=== PATIENT | female | born 1970 | race Native Hawaiian/Other Pacific Islander ===

== ENCOUNTER 2017-10-15 11:22 | Inpatient (IN) | payer OTHER ==
[2017-10-15 11:23] VITALS: BMI 23.6
[2017-10-15 12:02] LABS: BASO # 0.1 K/uL (0.0-0.2); EOS # 0.3 K/uL (0.0-0.7); EOS % 3.5 % (0.0-4.0); HEMATOCRIT 45.8 % (34.0-47.0); LYMPH # 3.1 K/uL (1.0-4.3); MEAN CELL VOLUME 92.9 fL (81.0-99.0); MEAN CORPUSCULAR HEMOGLOBIN 31.2 pg (27.0-31.0); MEAN CORPUSCULAR HGB CONC 33.6 g/dL (33.0-37.0); MEAN PLATELET VOLUME 6.6 fL (7.2-11.7); MONO # 0.6 K/uL (0.0-0.8); MONO % 7.3 % (0.0-10.0); RED CELL DISTRIBUTION WIDTH 13.3 % (11.5-14.5); WHITE BLOOD COUNT 8.1 K/uL (4.8-10.8)
--- NOTE | 2017-10-15 12:02 | C.PDOC ---
History Of Present Illness 47 y/o female presents to ED status post intentional overdose of Benadryl prior to arrival. Patient states she took 15 pills in 1hour for new onset bilateral itchy eyes since this morning. Patient reports unknown other coingestion and denies suicidal ideation, sob, wheeze or any other complaints at this time. HPI limited secondary to patient's clinical condition. 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 PS TOOK 15 PILLS IN 1 HOUR FOR NEW ONSET B/L ITCHY EYES SINCE THIS MORNING. UNK OTHER COINGESTION. DENIES SI. NO SOB, WHEEZE. ROS LIMITED DUE TO CLIN COND EXAM MOD DIST NONTOXIC HEENT B/L PERIORB HIVES W WATERY EYE DC; NO ANGIOEDEMA; NO DROOL, STRIDOR RHINORRHEA LUNGS CTA B/L NO W/R/R CV RRR SINUS TACH ABD NEG SKIN NO HIVES PSYCH MILD AGITATION BUT CONSOLABLE MILD CONFUSION LABILE NEURO NO GROSS FOCAL DE REMAINDER NEG Time Seen by Provider: 10/15/17 11:46 Chief Complaint (Nursing): Medical Clearance History Per: Patient History/Exam Limitations: clinical condition Onset/Duration Of Symptoms: Hrs Current Symptoms Are (Timing): Still Present Suicide/Self Injury Attempted (Context): None Past Medical History Reviewed: Historical Data, Nursing Documentation, Vital Signs Vital Signs: Last Vital Signs Temp 98.3 F 10/15/17 16:14 Pulse 113 H 10/15/17 16:14 Resp 16 10/15/17 16:14 BP 134/83 10/15/17 16:14 Pulse Ox 99 10/15/17 16:14 - Medical History PMH: Fractures (RT. ANKLE) Surgical History: No Surg Hx - [facility] OP RED-INT FIX TIB/FIBUL (07/25/14) Family History: States: No Known Family Hx - Social History Hx Alcohol Use: No Hx Substance Use: No - Immunization History Hx Tetanus Toxoid Vaccination: No Hx Influenza Vaccination: No Hx Pneumococcal Vaccination: No Review Of Systems Review Of Systems: ROS cannot be obtained secondary to pt's inabilty to answer questions. Physical Exam - Physical Exam Appears: Non-toxic, Other (Moderate distress) Skin: Warm, Dry, No Rash Head: Atraumatic, Normacephalic, Other (+Periorbital hives bilateral w/ watery eye discharge) Eye(s): bilateral: Other ((-)angioedema ) Ear(s): Bilateral: Normal Oral Mucosa: Moist Throat: Normal, No Erythema, No Exudate, No Drooling Neck: Supple Cardiovascular: Rhythm Regular, Other (Tachycardic) Respiratory: Normal Breath Sounds, No Rales, No Rhonchi, No Wheezing Gastrointestinal/Abdominal: Soft, No Tenderness, No Guarding, No Rebound Neurological/Psych: Oriented x3, Other ((+)Mild agitation, Consolable, mild confusion labile (-)gross focal deficits) ED Course And Treatment - Laboratory Results Result Diagrams: 10/15/17 11:57 10/15/17 11:57 ECG: Interpreted By Me ECG Rhythm: Sinus Tachycardia ECG Interpretation: Abnormal Interpretation Of ECG: QRS 92 QTC 455 Rate From EC (BPM) O2 Sat by Pulse Oximetry: 100 (RA) Pulse Ox Interpretation: Normal Progress - Re-Evaluation Re-evaluation Note: 10/15/17 11:47 PER RN OUTLAW D/W [place] POISONS: URINARY RETENTION, AGITATION, SOMNALENCE 10/15/17 14:40 SLEEPING NAD VSS 10/15/17 15:55 INCR AGITATION. 10/15/17 15:21 REPEAT EKG NSR @ 106 10/15/17 17:12 PERSIST SX, HALLUCINATIONS. 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 case with internal consultant/specialty: Other ([place] POISONS) Disposition Counseled Patient/Family Regarding: Studies Performed, Diagnosis - Disposition Disposition: HOSPITALIZED Disposition Time: 17:12 Condition: STABLE Forms: [facility] ([employer]) - POA Present On Arrival: None - Clinical Impression Clinical Impression: Antihistamines overdose - Scribe Statement The provider has reviewed the documentation as recorded by the Pabloibsimone Slater All medical record entries made by the Scribe were at my direction and personally dictated by me. I have reviewed the chart and agree that the record accurately reflects my personal performance of the history, physical exam, medical decision making, and the department course for this patient. I have also personally directed, reviewed, and agree with the discharge instructions and disposition. Decision To Admit - Pt Status Changed To: Hospital Disposition Of: Observation - . Bed Request Type: Telemetry Admitting Physician: Angelica Sen Patient Diagnosis: Antihistamines overdose
[2017-10-15 12:13] LABS: ALB/GLOB RATIO 1.6 (1.0-2.1); ALCOHOL SERUM < 10 mg/dl (0-10); ALKALINE PHOSPHATASE 55 U/L (38-126); ALT/SGPT 27 U/L (9-52); AST/SGOT 27 U/L (14-36); BILIRUBIN,TOTAL 0.8 mg/dL (0.2-1.3); BLOOD UREA NITROGEN 7 mg/dL (7-17); CARBON DIOXIDE 28 mmol/L (22-30); CHLORIDE 100 mmol/L (98-107); GFR AFRICAN-AMERICAN > 60; GLUCOSE,RANDOM 88 mg/dL (65-105); POTASSIUM 3.5 mmol/L (3.6-5.2); SODIUM 138 mmol/L (132-148); TOTAL PROTEIN 8.1 g/dL (6.3-8.3)
[2017-10-15] MEDS ORDERED: MethylPREDNISolone 40 mg Vial IVP STA (12:19)
[2017-10-15] MEDS ORDERED: MethylPREDNISolone 40 mg Vial ONE (12:34)
--- NOTE | 2017-10-15 13:30 | RAD ---
PROCEDURE: CHEST RADIOGRAPH, 1 VIEW HISTORY: Overdosed COMPARISON: Comparison chest dated 07/25/2014. FINDINGS: LUNGS: Poor inspiration with low lung volumes, crowded bronchovascular markings and mild bibasilar atelectasis. PLEURA: No pneumothorax or pleural fluid seen. CARDIOVASCULAR: Normal. OSSEOUS STRUCTURES: No significant abnormalities. VISUALIZED UPPER ABDOMEN: Normal. OTHER FINDINGS: None. IMPRESSION: Poor inspiration with low lung volumes, crowded bronchovascular markings and mild bibasilar atelectasis. The
[2017-10-15 14:55] LABS: RBC URINE 2 /hpf (0-3); URINE BILIRUBIN NEGATIVE (NEGATIVE); URINE BLOOD NEGATIVE (NEGATIVE); URINE COLOR Straw (YELLOW); URINE GLUCOSE (UA) NORMAL (Normal); URINE KETONE NEGATIVE (NEGATIVE); URINE LEUKOCYTE ESTERASE 1+ Leu/uL (Negative); URINE PROTEIN NEGATIVE (NEGATIVE); URINE UROBILINOGEN NORMAL mg/dL (0.2-1.0); WBC URINE 2 /hpf (0-5)
[2017-10-16] MEDS: Dextrose 5%/0.45% NS 1,000 ML IV SCH ×3 (02:00→19:41)
[2017-10-16 08:17] LABS: BASO % 0.2 % (0.0-2.0); EOS % 0.2 % (0.0-4.0); HEMATOCRIT 42.3 % (34.0-47.0); LYMPH # 2.1 K/uL (1.0-4.3); LYMPH % 17.4 % (20.0-40.0); MEAN CELL VOLUME 93.3 fL (81.0-99.0); MEAN CORPUSCULAR HEMOGLOBIN 31.1 pg (27.0-31.0); MEAN CORPUSCULAR HGB CONC 33.3 g/dL (33.0-37.0); MEAN PLATELET VOLUME 6.7 fL (7.2-11.7); MONO # 0.9 K/uL (0.0-0.8); MONO % 7.2 % (0.0-10.0); NRBC % 0.1 % (0.0-2.0); RED CELL DISTRIBUTION WIDTH 13.3 % (11.5-14.5)
[2017-10-16 08:25] LABS: WHITE BLOOD COUNT 12.3 K/uL (4.8-10.8)
[2017-10-16 08:46] LABS: ALB/GLOB RATIO 1.6 (1.0-2.1); ALKALINE PHOSPHATASE 54 U/L (38-126); ALT/SGPT 20 U/L (9-52); AST/SGOT 25 U/L (14-36); BLOOD UREA NITROGEN 8 mg/dL (7-17); CALCIUM 8.5 mg/dl (8.6-10.4); CARBON DIOXIDE 23 mmol/L (22-30); CHLORIDE 103 mmol/L (98-107); GFR AFRICAN-AMERICAN > 60; GLUCOSE,RANDOM 97 mg/dL (65-105); POTASSIUM 3.3 mmol/L (3.6-5.2); SODIUM 137 mmol/L (132-148); TOTAL PROTEIN 6.8 g/dL (6.3-8.3)
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
--- NOTE | 2017-10-16 14:49 | CT ---
PROCEDURE: CT HEAD WITHOUT CONTRAST. HISTORY: Head Injury COMPARISON: None available. TECHNIQUE: Axial computed tomography images were obtained through the head/brain without intravenous contrast. Radiation dose: Total exam DLP = 984.01 mGy-cm. This CT exam was performed using one or more of the following dose reduction techniques: Automated exposure control, adjustment of the mA and/or kV according to patient size, and/or use of iterative reconstruction technique. FINDINGS: HEMORRHAGE: No acute parenchymal, subarachnoid or extra-axial hemorrhage. BRAIN: No mass effect or edema. No atrophy or chronic microvascular ischemic changes. VENTRICLES: No obstructive hydrocephalus. CALVARIUM: No acute calvarial fractures. PARANASAL SINUSES: Minor mucosal thickening seen within a few ethmoid air cells as well as sphenoid sinus. MASTOID AIR CELLS: Unremarkable as visualized. No inflammatory changes. OTHER FINDINGS: None. IMPRESSION: No acute intracranial hemorrhage.
[2017-10-17] MEDS: Dextrose 5%/0.45% NS 1,000 ML IV SCH ×2 (05:29→16:55)
[2017-10-17 12:11] LABS: BASO # 0.1 K/uL (0.0-0.2); BASO % 1.1 % (0.0-2.0); EOS # 0.3 K/uL (0.0-0.7); EOS % 3.6 % (0.0-4.0); HEMATOCRIT 39.9 % (34.0-47.0); LYMPH # 3.3 K/uL (1.0-4.3); LYMPH % 38.3 % (20.0-40.0); MEAN CELL VOLUME 92.2 fL (81.0-99.0); MEAN CORPUSCULAR HEMOGLOBIN 31.4 pg (27.0-31.0); MEAN CORPUSCULAR HGB CONC 34.1 g/dL (33.0-37.0); MEAN PLATELET VOLUME 6.8 fL (7.2-11.7); MONO # 0.6 K/uL (0.0-0.8); MONO % 7.6 % (0.0-10.0); NRBC % 0.1 % (0.0-2.0); RED CELL DISTRIBUTION WIDTH 13.3 % (11.5-14.5); WHITE BLOOD COUNT 8.5 K/uL (4.8-10.8)
--- NOTE | 2017-10-17 13:05 | PCM.PYCHPN ---
Psychiatric Progress Note - Psychiatric Progress Note Patient seen today, length of contact: 15 min Patient Chief Complaint: I was feeling depressed.' Problems Identified/Issues Discussed: Patient seen and evaluated, chart reviewed and discussed with the nurse. Patient remained isolated, confined and withdrawn. Patient still reports depressed mood and feelings of hopelessness and worthlessness. Staff reports that she has been crying and remained depressed and withdrawn. She has poor appetite and she remained on her bed whole day. However, she is taking medication and denies any side effects. She needs more time for stabilization. Supportive therapy and psychoeducation were given. Medication Change: Yes (increase zoloft) Medical Record Reviewed: Yes Mental Status Examination - Cognitive Function Orientation: Person, Place, Situation, Time Memory: Intact Attention: WNL Concentration: Poor Association: WNL Fund of Knowledge: Poor - Mood Mood: Depressed, Anxious - Affect Affect: Constricted, Depressed - Speech Speech: Soft - Formal Thought Process Formal Thought Process: No Impairment - Suicidal Ideation Suicidal Ideation: No - Homicidal Ideation Homicidal Ideation: No Goal/Treatment Plan - Goal/Treatment Plan Need for Continued Stay: Severe depression anxiety, Severe functional impairment Progress Toward Problem(s) and Goals/Treatment Plan: Major depressive disorder single episode severe without psychotic feature CBT Psychoeducation Supportive therapy, group therapy, individual therapy Ativan 1 mg every 6 hours prn Zoloft 100 mg by mouth daily Neurontin 100 mg by mouth 3 times a day Trazodone 50 mg by mouth daily at bedtime - Smoking Cessation Smoking Cessation Initiated: No
[2017-10-17 13:14] LABS: ALB/GLOB RATIO 1.6 (1.0-2.1); ALKALINE PHOSPHATASE 49 U/L (38-126); ALT/SGPT 26 U/L (9-52); AST/SGOT 24 U/L (14-36); BILIRUBIN,TOTAL 0.5 mg/dL (0.2-1.3); BLOOD UREA NITROGEN 16 mg/dL (7-17); CARBON DIOXIDE 26 mmol/L (22-30); CHLORIDE 102 mmol/L (98-107); GFR AFRICAN-AMERICAN > 60; GLUCOSE,RANDOM 108 mg/dL (65-105); POTASSIUM 3.4 mmol/L (3.6-5.2); SODIUM 139 mmol/L (132-148); TOTAL PROTEIN 6.2 g/dL (6.3-8.3)
[2017-10-17] MEDS ORDERED: Potassium Chloride 20 mEq ER Tab PO ONE (13:34)
--- NOTE | 2017-10-17 14:36 | CP.PCM.PN ---
Subjective - Date & Time of Evaluation Date of Evaluation: 10/17/17 Time of Evaluation: 10:00 - Subjective Subjective: PGY3 on medicine Dr. Sen service: Pt seen and examined at bedside this morning. Pt reports feeling better emotionally and physically. Pt was able to tolerate diet and carry out normal conversation. No other acute events overnight. Pt to be transferred to . Objective - Vital Signs/Intake and Output Vital Signs (last 24 hours): Temp Pulse Resp BP Pulse Ox 97.9 F 75 20 100/61 98 10/17/17 08:52 10/17/17 08:52 10/17/17 08:52 10/17/17 09:08 10/17/17 08:52 Intake and Output: 10/17/17 10/17/17 06:59 18:59 Intake Total 600 Balance 600 - Medications Medications: Current Medications Gabapentin (Neurontin) 100 mg PO TID [facility] Last Admin: 10/17/17 10:06 Dose: 100 mg Dextrose/Sodium Chloride (Dextrose 5%/0.45% Ns 1000 Ml) 1,000 mls @ 100 mls/hr IV .Q10H [facility] Last Admin: 10/17/17 05:29 Dose: Not Given Lorazepam (Ativan) 1 mg IVP Q6H PRN PRN Reason: Anxiety Lorazepam (Ativan) 1 mg PO Q6 PRN PRN Reason: Agitation Sertraline HCl (Zoloft) 50 mg PO DAILY [facility] Last Admin: 10/17/17 10:06 Dose: 50 mg Trazodone HCl (Desyrel) 50 mg PO HS [facility] Last Admin: 10/16/17 21:36 Dose: 50 mg - Labs Labs: 10/17/17 11:48 10/17/17 11:48 - Constitutional Appears: Non-toxic, No Acute Distress - Head Exam Head Exam: NORMOCEPHALIC - Eye Exam Eye Exam: Normal appearance Pupil Exam: NORMAL ACCOMODATION - ENT Exam ENT Exam: Mucous Membranes Moist - Respiratory Exam Respiratory Exam: Clear to Ausculation Bilateral, NORMAL BREATHING PATTERN. absent: Wheezes - Cardiovascular Exam Cardiovascular Exam: REGULAR RHYTHM, +S1, +S2. absent: Gallop, Rubs - GI/Abdominal Exam GI & Abdominal Exam: Soft, Normal Bowel Sounds. absent: Tenderness - Neurological Exam Neurological Exam: Alert, Awake, Oriented x3 - Psychiatric Exam Psychiatric exam: Normal Mood - Skin Skin Exam: Intact Assessment and Plan - Assessment and Plan (Free Text) Assessment: Depression S/P ingesting 15 pills of benadryl within one hour CBT Psychoeducation Supportive therapy, group therapy, individual therapy Ativan 1 mg every 6 hours prn Zoloft 50 mg by mouth daily Neurontin 100 mg by mouth 3 times a day Trazodone 50 mg by mouth daily at bedtime Pt to be transferred to psych floor for monitoring. Management as per Dr. Sen
--- NOTE | 2017-10-18 06:54 | HP ---
HISTORY OF PRESENT ILLNESS: This is a 47-year-old female with chief complaints of altered mental status, slurred speech, agitation. The patient took 15 Benadryl for severe itching. Patient came to the ER, evaluated, and advised admission. Patient is a RN. Patient denies any depression, denies suicidal thoughts. PHYSICAL EXAMINATION: GENERAL: The patient is awake, alert, oriented. VITAL SIGNS: Temperature is 98, pulse 90. HEENT: Within normal limits. NECK: Supple. CHEST: Symmetrical. HEART: Regular. ABDOMEN: Soft. EXTREMITIES: No edema. IMPRESSION: The patient suffered Benadryl overdose, accidental. The patient needs bed rest, supportive care, psychiatric evaluation. Angelica Sen MD
--- NOTE | 2017-10-18 10:33 | PCM.PYCHPN ---
Psychiatric Progress Note - Psychiatric Progress Note Patient seen today, length of contact: 15 min Patient Chief Complaint: I was feeling depressed.' Problems Identified/Issues Discussed: Patient seen and evaluated, chart reviewed and discussed with the nurse. As per the staff patient remained depressed, and isolated. Patient still reports depressed mood and feelings of hopelessness and worthlessness. Patient still reports poor appetite and she remained in her room most of the time. However, she is taking medication and denies any side effects. She needs more time for stabilization. Supportive therapy and psychoeducation were given. Medication Change: Yes (increase zoloft, reduce neurontin) Medical Record Reviewed: Yes Mental Status Examination - Cognitive Function Orientation: Person, Place, Situation, Time Memory: Intact Attention: WNL Concentration: Poor Association: WNL Fund of Knowledge: Poor - Mood Mood: Depressed, Anxious - Affect Affect: Constricted, Depressed - Speech Speech: Soft - Formal Thought Process Formal Thought Process: No Impairment - Suicidal Ideation Suicidal Ideation: No - Homicidal Ideation Homicidal Ideation: No Goal/Treatment Plan - Goal/Treatment Plan Need for Continued Stay: Severe depression anxiety, Severe functional impairment Progress Toward Problem(s) and Goals/Treatment Plan: Major depressive disorder single episode severe without psychotic feature CBT Psychoeducation Supportive therapy, group therapy, individual therapy Ativan 1 mg every 6 hours prn Zoloft 100 mg by mouth daily Neurontin 100 mg by mouth 2 times a day Trazodone 50 mg by mouth daily at bedtime - Smoking Cessation Smoking Cessation Initiated: No
--- NOTE | 2017-10-19 11:01 | PCM.PYCHPN ---
Psychiatric Progress Note - Psychiatric Progress Note Patient seen today, length of contact: 15 min Patient Chief Complaint: I was feeling depressed.' Problems Identified/Issues Discussed: Patient seen and evaluated, chart reviewed and discussed with the nurse. Patient remained isolated, confined and withdrawn. Patient still reports depressed mood and feelings of hopelessness and worthlessness. Staff reports that she has been crying and remained depressed and withdrawn. She has poor appetite and she remained on her bed whole day. However, she is taking medication and denies any side effects. She needs more time for stabilization. Supportive therapy and psychoeducation were given. Medication Change: Yes (increase zoloft, reduce trazodone, d/c neurontin) Medical Record Reviewed: Yes Mental Status Examination - Cognitive Function Orientation: Person, Place, Situation, Time Memory: Intact Attention: WNL Concentration: Poor Association: WNL Fund of Knowledge: Poor - Mood Mood: Depressed, Anxious - Affect Affect: Constricted, Depressed - Speech Speech: Soft - Formal Thought Process Formal Thought Process: No Impairment - Suicidal Ideation Suicidal Ideation: No - Homicidal Ideation Homicidal Ideation: No Goal/Treatment Plan - Goal/Treatment Plan Need for Continued Stay: Severe depression anxiety, Severe functional impairment Progress Toward Problem(s) and Goals/Treatment Plan: Major depressive disorder single episode severe without psychotic feature CBT Psychoeducation Supportive therapy, group therapy, individual therapy d/c Ativan 1 mg every 6 hours prn Zoloft 150 mg by mouth daily d/c Neurontin 100 mg by mouth 3 times a day reduce Trazodone to 100 mg by mouth daily at bedtime - Smoking Cessation Smoking Cessation Initiated: No
--- NOTE | 2017-10-19 11:17 | PCM.BM ---
<Shayy Crespo - Last Filed: 10/19/17 11:15> Treatment assets and liabiliti Patient Assests: cooperative, educated, ADL independent, physically healthy, good support system, cognitively intact Patient Liabilities: relationship conflicts - Milieu Protocol Maintain good personal hygiene: daily Encourage regular showers Maintain personal safety: every shift Educate patient to report safety concerns to staff, every shift Monitor environment for contraband/sharps Medication safety: Monitor for expected outcome, potential side effects: every shift, Assess barriers to learning: every shift, Assess readiness for medication education: every shift Milieu Narrative: Major depressive disorder single episode severe without psychotic feature CBT Psychoeducation Supportive therapy, group therapy, individual therapy Ativan 1 mg every 6 hours prn Zoloft 100 mg by mouth daily Neurontin 100 mg by mouth 3 times a day Trazodone 50 mg by mouth daily at bedtime Discharge/Continuing Care - Treatment Team Participation Patient/Family/SO Statement: Major depressive disorder single episode severe without psychotic feature CBT Psychoeducation Supportive therapy, group therapy, individual therapy Ativan 1 mg every 6 hours prn Zoloft 100 mg by mouth daily Neurontin 100 mg by mouth 3 times a day Trazodone 50 mg by mouth daily at bedtime <Trish Islas - Last Filed: 10/19/17 13:15> Family Contact Family involvement: Famliy/SO not involved - Goals for Treatment Patient goals for treatment: "I want to go home." Discharge/Continuing Care - Education Needs Education Needs: Patient Medication, Patient Coping Skills - Discharge Discharge Criteria: Tolerates medication w/o severe side effects, Free of Suicidal thoughts, Reduction of target symptoms Discharge to:: Home - Treatment Team Participation Discussed with Family/SO: No Was Patient/Family/SO present at Treatment Team Meeting: Yes <Citlalli Cain - Last Filed: 10/21/17 00:35> - Diagnosis (1) Major depressive disorder Status: Acute Interventions: 10/21/17 00:35 * Assess/adjust medications daily and /or as needed * See patient on an individual basis 7x/week to assess level of depressive behaviors and stability * Discuss risks, benefits, side effects and alternatives of medications *
--- NOTE | 2017-10-20 14:50 | PCM.PYCHPN ---
Psychiatric Progress Note - Psychiatric Progress Note Patient seen today, length of contact: 15 min Patient Chief Complaint: "I'm better" Problems Identified/Issues Discussed: This patient was seen, chart reviewed, and case discussed with staff. Patient and staff report no events overnight. She states she slept well and has had good appetite. She reports improvement in her depression. She believes she is improving. She denies any auditory or visual hallucinations. She denies any suicidal or homicidal ideations. She denies any feelings of anxiety or paranoia. Patient appears appropriately dressed and is cooperative. She has been leaving her room more than previous days and freely walks in the halls. She has been socializing and participating in unit activities. Patient is taking medications and denies any side effects. Symptoms are improving but need more time to stabilize. After care discussed, support and psychoeducation given. Medication Change: Yes (increase zoloft) Medical Record Reviewed: Yes Mental Status Examination - Cognitive Function Orientation: Person, Place, Situation, Time Memory: Intact Attention: WNL Concentration: Poor Association: WNL Fund of Knowledge: Poor - Mood Mood: Depressed, Anxious - Affect Affect: Constricted, Depressed - Speech Speech: Appropriate - Formal Thought Process Formal Thought Process: No Impairment - Suicidal Ideation Suicidal Ideation: No - Homicidal Ideation Homicidal Ideation: No Goal/Treatment Plan - Goal/Treatment Plan Need for Continued Stay: Severe depression anxiety, Severe functional impairment Progress Toward Problem(s) and Goals/Treatment Plan: Major depressive disorder single episode severe without psychotic feature CBT Psychoeducation Supportive therapy, group therapy, individual therapy Hydroxyzine 25 mg PO Q 6 hours prn Zoloft 200 mg by mouth daily Trazodone 100 mg by mouth daily at bedtime - Smoking Cessation Smoking Cessation Initiated: No
--- NOTE | 2017-10-20 15:29 | CARD ---
APPROVED REPORT EKG Measurement Heart [id number] [place] [id number] <Conclusion> Normal sinus rhythm Possible Left atrial enlargement Incomplete right bundle branch block Left posterior fascicular block Prolonged QT Abnormal ECG
--- NOTE | 2017-10-20 15:38 | CARD ---
APPROVED REPORT EKG Measurement Heart [id number] [place] [id number] <Conclusion> Sinus tachycardia Possible Left atrial enlargement Right axis deviation Pulmonary disease pattern Incomplete right bundle branch block Abnormal ECG
--- NOTE | 2017-10-20 20:08 | CARD ---
APPROVED REPORT EKG Measurement Heart [id number] <Conclusion> Sinus tachycardia Possible Left atrial enlargement Right axis deviation Pulmonary disease pattern Nonspecific ST abnormality Abnormal ECG
--- NOTE | 2017-10-22 08:58 | PCM.PYCHPN ---
Psychiatric Progress Note - Psychiatric Progress Note Patient seen today, length of contact: 15 min Patient Chief Complaint: "I'm really good, much better" Problems Identified/Issues Discussed: This patient was seen, chart reviewed, and case discussed with staff. Patient states she slept well and has had good appetite. She reports improvement in her depression. She states, "I'm much better, only 'positive symptoms,' the good kind!" She denies any auditory or visual hallucinations. She denies any suicidal or homicidal ideations. She denies any feelings of anxiety or paranoia. Patient appears appropriately dressed and is cooperative. She freely leaves her room and walks in the halls. She has been socializing and participating in unit activities. Patient is taking medications and denies any side effects. Symptoms are improving but need more time to stabilize. After care discussed, support and psychoeducation given. Medication Change: Yes (increase zoloft) Medical Record Reviewed: Yes Mental Status Examination - Cognitive Function Orientation: Person, Place, Situation, Time Memory: Intact Attention: WNL Concentration: WNL Association: WNL Fund of Knowledge: WNL - Mood Mood: Anxious - Affect Affect: Broad - Speech Speech: Appropriate - Formal Thought Process Formal Thought Process: No Impairment - Suicidal Ideation Suicidal Ideation: No - Homicidal Ideation Homicidal Ideation: No Goal/Treatment Plan - Goal/Treatment Plan Need for Continued Stay: Severe depression anxiety, Severe functional impairment Progress Toward Problem(s) and Goals/Treatment Plan: Major depressive disorder single episode severe without psychotic feature CBT Psychoeducation Supportive therapy, group therapy, individual therapy Hydroxyzine 25 mg PO Q 6 hours prn Zoloft 200 mg by mouth daily Trazodone 100 mg by mouth daily at bedtime
[2017-10-23 06:37] VITALS: TEMP 98.3
[2017-10-24 08:25] VITALS: BP 104/76; PULSE 76; RESP 18; O2SAT 100
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
== END 2017-10-24 12:40 | disposition home or self-care (01) | DRG 918 ==
LOC: C.ER 11:22 → C.9E 17:13 → C.5S 19:48 → C.5E 10-17 13:33 → OBSVTOIN 10-17 13:33
PROVIDERS: ADMIT Psychiatry & Neurology Psychiatry; ATTEND Psychiatry & Neurology Psychiatry
PROC: GZHZZZZ Group Psychotherapy (ICD-10-PCS; principal; 2017-10-17)
PROC: GZ58ZZZ Individual Psychotherapy, Cognitive-Behavioral (ICD-10-PCS; 2017-10-17)
PROC: GZ56ZZZ Individual Psychotherapy, Supportive (ICD-10-PCS; 2017-10-17)
DX: T45.0X2A Poisoning by antiallergic and antiemetic drugs, intentional self-harm, initial encounter (principal); F32.2 Major depressive disorder, single episode, severe without psychotic features; L29.9 Pruritus, unspecified; L50.0 Allergic urticaria; Z79.899 Other long term (current) drug therapy; F41.8 Other specified anxiety disorders